=== PATIENT | female | born 1985 | race African-American/Black ===

== ENCOUNTER 2016-09-23 20:34 | Inpatient (IN) | payer MEDICAID ==
[~2016-09-23] VITALS: Ht 185.4 cm; Wt 62.6 kg
[2016-09-23 21:29] VITALS: BP 115/68
[2016-09-23] MEDS ORDERED: ZOLPIDEM TARTRATE 10 MG TABLET PO PRN (21:45)
[2016-09-23 22:15] VITALS: BP 104/69
[2016-09-23] MEDS ORDERED: MELA1TAB8 PO (23:56)
[2016-09-24 07:29] LABS: BASOPHILS % (AUTO) 0.4 % (0.0-2.0); EOSINOPHILS % (AUTO) 1.3 % (1.0-6.0); HEMATOCRIT 36.1 % (36-46); HEMOGLOBIN 11.4 g/dL (12.0-16.0); LYMPHOCYTES # (AUTO) 2.1 K/uL (1.0-4.8); LYMPHOCYTES % (AUTO) 24.1 % (22.0-44.0); MEAN CORPUSCULAR HEMOGLOBIN 30.5 pg (26.0-34.0); MEAN CORPUSCULAR HGB CONC 31.6 G/dL (31.0-37.0); MEAN CORPUSCULAR VOLUME 97 fL (80-100); MONOCYTES # (AUTO) 0.9 K/uL (0.1-1.0); MONOCYTES % (AUTO) 9.9 % (2.0-9.0); NEUTROPHILS # (AUTO) 5.6 K/uL (1.8-7.7); NEUTROPHILS % (AUTO) 64.3 % (40.0-70.0); PLATELET COUNT (AUTO) 187 K/uL (150-450); RED BLOOD CELL COUNT(AUTO) 3.74 MIL/uL (4.00-5.20); RED CELL DISTRIBUTION WIDTH 14.6 % (11.5-14.5); WHITE BLOOD COUNT (AUTO) 8.7 K/uL (4.5-11.0)
[2016-09-24 07:51] LABS: ALANINE AMINOTRANSFERASE 18 U/L (12-78); ALBUMIN 3.3 g/dL (3.4-5.0); ANION GAP 8 mmol/L (8-16); ASPARTATE AMINOTRANSFERASE 12 U/L (15-37); BILIRUBIN,TOTAL 0.4 mg/dL (0.1-1.0); CALCIUM, TOTAL 8.6 mg/dL (8.8-10.5); CARBON DIOXIDE 26 mmol/L (22-29); CHLORIDE 104 mmol/L (98-107); CHOL/HDL RATIO 1.7 (3.9-5.7); CREATININE 0.88 mg/dL (0.60-1.30); GLOMERULAR FILTR. RATE CALC > 60 mL/min (>60); POTASSIUM 4.3 mmol/L (3.5-5.1); SODIUM SERUM 138 mmol/L (136-145); THYROID STIMULATING HORMONE 1.48 uIU/mL (0.36-3.74); TOTAL PROTEIN, SERUM 7.1 g/dL (6.4-8.2); UREA NITROGEN, BLOOD 11 mg/dL (7-18)
[2016-09-24 09:21] VITALS: BP 106/60
[2016-09-24] MEDS ORDERED: SERTRALINE HCL 100 MG TABLET PO SCH (11:00)
[2016-09-24] MEDS ORDERED: SERTRALINE HCL 50 MG TABLET PO SCH (11:00)
[2016-09-24 16:00] VITALS: BP 120/82
[2016-09-24] MEDS: LORazepam 2 MG TABLET PO PRN (18:04)
[2016-09-24] MEDS: HALOPERIDOL 5 MG TABLET PO PRN (21:27)
[2016-09-25 03:25] VITALS: BP 110/78
[2016-09-25 08:01] VITALS: BP 127/81
[2016-09-25] MEDS: LORazepam 2 MG TABLET PO PRN ×2 (09:47→13:59)
[2016-09-25 16:00] VITALS: BP 129/67
[2016-09-25] MEDS: QUEtiapine FUMARATE 25 MG TABLET PO SCH (20:43)
[2016-09-26 01:21] VITALS: BP 105/60
[2016-09-26 05:44] VITALS: BP 113/77
[2016-09-26] MEDS: LORazepam 2 MG TABLET PO PRN (05:46)
[2016-09-26 08:07] VITALS: BP 126/67
[2016-09-26] MEDS: SERTRALINE HCL 100 MG TABLET PO SCH (08:25)
[2016-09-26] MEDS: HALOPERIDOL 5 MG TABLET PO PRN (12:10)
[2016-09-26 16:00] VITALS: BP 119/75
[2016-09-26] MEDS: QUEtiapine FUMARATE 25 MG TABLET PO SCH (20:03)
[2016-09-27 00:16] VITALS: BP 100/67
[2016-09-27 02:26] VITALS: BP 120/73
[2016-09-27] MEDS: LORazepam 2 MG TABLET PO PRN ×3 (02:28→17:29)
[2016-09-27 08:09] VITALS: BP 107/73
[2016-09-27] MEDS: SERTRALINE HCL 100 MG TABLET PO SCH (08:21)
[2016-09-27 16:00] VITALS: BP 112/77
[2016-09-27] MEDS ORDERED: QUET25TA PO (16:59)
[2016-09-27] MEDS ORDERED: SERT100T12 PO (17:00)
== END 2016-09-27 18:25 | disposition home or self-care (01) | DRG 751 ==
LOC: EDSTATUS 20:35 → B2S 21:41 → EDSTATUS 22:33
PROVIDERS: ADMIT Psychiatry & Neurology Psychiatry
DX: F33.3 Major depressive disorder, recurrent, severe with psychotic symptoms (principal); R45.851 Suicidal ideations; F12.90 Cannabis use, unspecified, uncomplicated; F60.3 Borderline personality disorder
CPT/HCPCS: 84439; 84443; G0480

== ENCOUNTER 2016-12-12 22:44 | Inpatient (IN) | payer MEDICAID, OTHER ==
[~2016-12-12] VITALS: Ht 182.9 cm; Wt 64.7 kg
[~2016-12-12 22:44] MED LIST: QUET100T PO; SERT100T12 PO
[2016-12-13] MEDS ORDERED: HALOPERIDOL 5 MG TABLET PO PRN (01:30)
[2016-12-13] MEDS ORDERED: HALOPERIDOL 5 MG TABLET PO ONE (01:30)
[2016-12-13] MEDS ORDERED: LORazepam 2 MG TABLET PO ONE (01:30)
[2016-12-13 02:36] LABS: BASOPHILS % (AUTO) 0.1 % (0.0-2.0); HEMOGLOBIN 11.1 g/dL (12.0-16.0); LYMPHOCYTES # (AUTO) 1.8 K/uL (1.0-4.8); MEAN CORPUSCULAR HEMOGLOBIN 31.4 pg (26.0-34.0); MEAN CORPUSCULAR HGB CONC 33.5 G/dL (31.0-37.0); MEAN CORPUSCULAR VOLUME 94 fL (80-100); MONOCYTES # (AUTO) 0.6 K/uL (0.1-1.0); MONOCYTES % (AUTO) 6.1 % (2.0-9.0); NEUTROPHILS # (AUTO) 7.3 K/uL (1.8-7.7); NEUTROPHILS % (AUTO) 73.8 % (40.0-70.0); PLATELET COUNT (AUTO) 197 K/uL (150-450); RED BLOOD CELL COUNT(AUTO) 3.53 MIL/uL (4.00-5.20); RED CELL DISTRIBUTION WIDTH 14.8 % (11.5-14.5); WHITE BLOOD COUNT (AUTO) 9.9 K/uL (4.5-11.0)
[2016-12-13 02:45] LABS: ANION GAP 13 mmol/L (8-16); CALCIUM, TOTAL 8.6 mg/dL (8.8-10.5); CARBON DIOXIDE 25 mmol/L (22-29); CHLORIDE 107 mmol/L (98-107); CREATININE 0.92 mg/dL (0.60-1.30); GLOMERULAR FILTR. RATE CALC > 60 mL/min (>60); POTASSIUM 3.6 mmol/L (3.5-5.1); SODIUM SERUM 145 mmol/L (136-145); UREA NITROGEN, BLOOD 13 mg/dL (7-18)
[2016-12-13 02:51] LABS: ALANINE AMINOTRANSFERASE 85 U/L (12-78); ALBUMIN 3.3 g/dL (3.4-5.0); ASPARTATE AMINOTRANSFERASE 68 U/L (15-37); BILIRUBIN,TOTAL 0.3 mg/dL (0.1-1.0); TOTAL PROTEIN, SERUM 6.9 g/dL (6.4-8.2)
[2016-12-13 06:33] VITALS: BP 103/63
[2016-12-13 08:00] VITALS: BP 100/66
[2016-12-13] MEDS: LORazepam 2 MG TABLET PO PRN (08:46)
[2016-12-13 16:00] VITALS: BP 108/68
[2016-12-13] MEDS: QUEtiapine FUMARATE 200 MG TABLET PO SCH (20:17)
[2016-12-13] MEDS: ZOLPIDEM TARTRATE 10 MG TABLET PO PRN (23:53)
[2016-12-14] MEDS: LORazepam 2 MG TABLET PO PRN ×3 (04:49→17:42)
[2016-12-14 07:07] VITALS: BP 100/72
[2016-12-14] MEDS: SERTRALINE HCL 50 MG TABLET PO SCH (08:19)
[2016-12-14 08:23] VITALS: BP 106/61
[2016-12-14 08:48] LABS: BASOPHILS % (AUTO) 0.7 % (0.0-2.0); EOSINOPHILS % (AUTO) 5.5 % (1.0-6.0); HEMATOCRIT 34.4 % (36-46); HEMOGLOBIN 11.7 g/dL (12.0-16.0); LYMPHOCYTES # (AUTO) 2.2 K/uL (1.0-4.8); LYMPHOCYTES % (AUTO) 34.8 % (22.0-44.0); MEAN CORPUSCULAR HEMOGLOBIN 31.8 pg (26.0-34.0); MEAN CORPUSCULAR HGB CONC 34.1 G/dL (31.0-37.0); MEAN CORPUSCULAR VOLUME 93 fL (80-100); MONOCYTES # (AUTO) 0.5 K/uL (0.1-1.0); MONOCYTES % (AUTO) 7.5 % (2.0-9.0); NEUTROPHILS # (AUTO) 3.2 K/uL (1.8-7.7); NEUTROPHILS % (AUTO) 51.5 % (40.0-70.0); PLATELET COUNT (AUTO) 208 K/uL (150-450); RED BLOOD CELL COUNT(AUTO) 3.69 MIL/uL (4.00-5.20); RED CELL DISTRIBUTION WIDTH 14.8 % (11.5-14.5); WHITE BLOOD COUNT (AUTO) 6.3 K/uL (4.5-11.0)
[2016-12-14 09:35] LABS: HEMOGLOBIN A1C 5.4 % (4.5-6.2)
[2016-12-14 09:42] LABS: APPEARANCE,URINE CLOUDY (CLEAR); GLUCOSE, URINE (UA) NEGATIVE (NEGATIVE); KETONES,URINE NEGATIVE (NEGATIVE); LEUKOCYTE ESTERASE ,URINE MODERATE (NEGATIVE); OCCULT BLOOD,URINE NEGATIVE (NEGATIVE); PH,URINE 7.5 (5.0-8.0); PROTEIN,URINE NEGATIVE (NEGATIVE)
[2016-12-14 09:53] LABS: ADD UA MICROSCOPIC YES
[2016-12-14 09:54] LABS: RBC,URINE None Seen /HPF (0-2); SQUAMOUS EPITHELIAL CELL,UR Many /LPF (None Seen)
[2016-12-14 10:00] LABS: ALANINE AMINOTRANSFERASE 68 U/L (12-78); ALBUMIN 3.4 g/dL (3.4-5.0); ANION GAP 12 mmol/L (8-16); ASPARTATE AMINOTRANSFERASE 30 U/L (15-37); BILIRUBIN,TOTAL 0.4 mg/dL (0.1-1.0); CALCIUM, TOTAL 8.9 mg/dL (8.8-10.5); CARBON DIOXIDE 23 mmol/L (22-29); CHLORIDE 106 mmol/L (98-107); CREATININE 0.81 mg/dL (0.60-1.30); GLOMERULAR FILTR. RATE CALC > 60 mL/min (>60); POTASSIUM 4.2 mmol/L (3.5-5.1); SODIUM SERUM 141 mmol/L (136-145); TOTAL PROTEIN, SERUM 7.1 g/dL (6.4-8.2); UREA NITROGEN, BLOOD 14 mg/dL (7-18)
[2016-12-14 16:11] VITALS: BP 104/60
[2016-12-14] MEDS: QUEtiapine FUMARATE 200 MG TABLET PO SCH (20:34)
[2016-12-14] MEDS: ZOLPIDEM TARTRATE 10 MG TABLET PO PRN (21:02)
[2016-12-15 02:10] VITALS: BP 117/63
[2016-12-15] MEDS: LORazepam 2 MG TABLET PO PRN ×2 (02:27→08:58)
[2016-12-15] MEDS: SERTRALINE HCL 50 MG TABLET PO SCH (08:17)
[2016-12-15 08:29] LABS: HEPATITIS Bs ANTIGEN SCREEN P Negative (Negative); HEPATITIS C AB SCREEN <0.1 s/co ratio (0.0-0.9)
[2016-12-15 08:33] VITALS: BP 100/54
[2016-12-15] MEDS ORDERED: QUET200T PO (14:26)
[2016-12-15 16:03] VITALS: BP 110/75
== END 2016-12-15 18:40 | disposition home or self-care (01) | DRG 750 ==
LOC: EMS 22:47 → B3A 12-13 04:16
DX: F25.1 Schizoaffective disorder, depressive type (principal); D64.9 Anemia, unspecified; F12.90 Cannabis use, unspecified, uncomplicated; F17.200 Nicotine dependence, unspecified, uncomplicated; M19.90 Unspecified osteoarthritis, unspecified site; Z79.899 Other long term (current) drug therapy; Z82.5 Family history of asthma and other chronic lower respiratory diseases; F14.90 Cocaine use, unspecified, uncomplicated; R79.89 Other specified abnormal findings of blood chemistry; Z71.51 Drug abuse counseling and surveillance of drug abuser; N83.202 Unspecified ovarian cyst, left side
CPT/HCPCS: 80074; 80307; 83036; 83735; 84439; 87081; 99285; G0480

== ENCOUNTER 2017-02-01 13:33 | Inpatient (IN) | payer MEDICAID, OTHER ==
[~2017-02-01] VITALS: Ht 182.9 cm; Wt 66.7 kg
[~2017-02-01 13:33] MED LIST changes: -QUET100T PO; +QUET200T PO; -SERT100T12 PO; +SERT50TA12 PO
[2017-02-01] MEDS ORDERED: QUEtiapine FUMARATE 100 MG TABLET PO ONE (15:00)
[2017-02-01 15:17] LABS: BASOPHILS % (AUTO) 0.5 % (0.0-2.0); HEMATOCRIT 36.5 % (36-46); HEMOGLOBIN 12.2 g/dL (12.0-16.0); LYMPHOCYTES # (AUTO) 1.8 K/uL (1.0-4.8); LYMPHOCYTES % (AUTO) 21.9 % (22.0-44.0); MEAN CORPUSCULAR HEMOGLOBIN 31.9 pg (26.0-34.0); MEAN CORPUSCULAR HGB CONC 33.5 G/dL (31.0-37.0); MEAN CORPUSCULAR VOLUME 95 fL (80-100); MONOCYTES # (AUTO) 0.7 K/uL (0.1-1.0); MONOCYTES % (AUTO) 8.4 % (2.0-9.0); NEUTROPHILS # (AUTO) 5.5 K/uL (1.8-7.7); NEUTROPHILS % (AUTO) 68.2 % (40.0-70.0); PLATELET COUNT (AUTO) 192 K/uL (150-450); RED BLOOD CELL COUNT(AUTO) 3.83 MIL/uL (4.00-5.20); RED CELL DISTRIBUTION WIDTH 14.8 % (11.5-14.5)
[2017-02-01 15:28] LABS: ANION GAP 7 mmol/L (8-16); CALCIUM, TOTAL 8.9 mg/dL (8.8-10.5); CARBON DIOXIDE 28 mmol/L (22-29); CHLORIDE 108 mmol/L (98-107); CREATININE 0.78 mg/dL (0.60-1.30); GLOMERULAR FILTR. RATE CALC > 60 mL/min (>60); POTASSIUM 3.7 mmol/L (3.5-5.1); SODIUM SERUM 143 mmol/L (136-145); UREA NITROGEN, BLOOD 11 mg/dL (7-18)
[2017-02-01] MEDS ORDERED: LORazepam 2 MG/ML VIAL IM ONE (15:30)
[2017-02-01] MEDS ORDERED: DiphenhydrAMINE HCL 50 MG/ML VIAL IM ONE (15:30)
[2017-02-01] MEDS ORDERED: HALOPERIDOL LACTATE 5 MG/ML VIAL IM ONE (15:30)
[2017-02-01 15:34] LABS: ALANINE AMINOTRANSFERASE 132 U/L (12-78); ALBUMIN 3.5 g/dL (3.4-5.0); ASPARTATE AMINOTRANSFERASE 89 U/L (15-37); BILIRUBIN,TOTAL 0.4 mg/dL (0.1-1.0); TOTAL PROTEIN, SERUM 7.2 g/dL (6.4-8.2)
[2017-02-01 17:02] LABS: RBC MORPHOLOGY COMMENT NORMAL RBC MORPH
[2017-02-01 17:10] VITALS: BP 121/71
[2017-02-02 03:41] VITALS: BP 118/69
[2017-02-02] MEDS: LORazepam 2 MG TABLET PO PRN ×3 (07:09→17:13)
[2017-02-02] MEDS: BACITRACIN 28.4 GM OINTMENT TP SCH ×2 (08:18→17:13)
[2017-02-02 08:26] VITALS: BP 120/72
[2017-02-02 09:42] LABS: CHOL/HDL RATIO 1.9 (3.9-5.7)
[2017-02-02] MEDS: SERTRALINE HCL 50 MG TABLET PO SCH (10:20)
[2017-02-02 16:16] VITALS: BP 121/62
[2017-02-02] MEDS: QUEtiapine FUMARATE 200 MG TABLET PO SCH (20:26)
[2017-02-03 01:05] VITALS: BP 117/68
[2017-02-03] MEDS: LORazepam 2 MG TABLET PO PRN ×3 (03:59→17:55)
[2017-02-03] MEDS: HALOPERIDOL 5 MG TABLET PO PRN ×2 (06:27→17:55)
[2017-02-03 08:09] VITALS: BP 110/63
[2017-02-03] MEDS: BACITRACIN 28.4 GM OINTMENT TP SCH ×2 (08:32→16:47)
[2017-02-03] MEDS: SERTRALINE HCL 50 MG TABLET PO SCH (08:32)
[2017-02-03 10:46] VITALS: BP 112/72
[2017-02-03] MEDS: IBUPROFEN 400 MG TABLET PO PRN (10:46)
[2017-02-03 16:14] VITALS: BP 137/68
[2017-02-03] MEDS: QUEtiapine FUMARATE 200 MG TABLET PO SCH (20:40)
[2017-02-03] MEDS: ZOLPIDEM TARTRATE 10 MG TABLET PO PRN (20:40)
[2017-02-04 04:09] VITALS: BP 133/67
[2017-02-04] MEDS: SERTRALINE HCL 50 MG TABLET PO SCH (08:11)
[2017-02-04] MEDS: BACITRACIN 28.4 GM OINTMENT TP SCH ×2 (08:12→16:46)
[2017-02-04] MEDS: LORazepam 2 MG TABLET PO PRN ×3 (08:15→18:59)
[2017-02-04 08:23] VITALS: BP 107/70
[2017-02-04] MEDS: IBUPROFEN 400 MG TABLET PO PRN (08:49)
[2017-02-04 09:14] LABS: HEPATITIS Bs ANTIGEN SCREEN P Negative (Negative); HEPATITIS C AB SCREEN 0.1 s/co ratio (0.0-0.9)
[2017-02-04] MEDS: HALOPERIDOL 5 MG TABLET PO PRN ×2 (14:45→18:59)
[2017-02-04 16:18] VITALS: BP 115/73
[2017-02-04] MEDS: QUEtiapine FUMARATE 200 MG TABLET PO SCH (20:44)
[2017-02-05 02:07] VITALS: BP 109/68
[2017-02-05] MEDS: IBUPROFEN 400 MG TABLET PO PRN (02:10)
[2017-02-05 08:14] VITALS: BP 109/69
[2017-02-05] MEDS: SERTRALINE HCL 50 MG TABLET PO SCH (08:29)
[2017-02-05] MEDS: HALOPERIDOL 5 MG TABLET PO PRN ×2 (08:29→13:09)
[2017-02-05] MEDS: LORazepam 2 MG TABLET PO PRN ×2 (08:29→13:09)
[2017-02-05] MEDS: BACITRACIN 28.4 GM OINTMENT TP SCH ×2 (08:31→16:15)
[2017-02-05 16:12] VITALS: BP 105/65
[2017-02-05] MEDS: QUEtiapine FUMARATE 200 MG TABLET PO SCH (20:11)
[2017-02-05] MEDS: ZOLPIDEM TARTRATE 10 MG TABLET PO PRN (22:50)
[2017-02-06 04:28] VITALS: BP 109/68
[2017-02-06] MEDS: LORazepam 2 MG TABLET PO PRN (04:29)
[2017-02-06] MEDS: SERTRALINE HCL 50 MG TABLET PO SCH (07:54)
[2017-02-06] MEDS: BACITRACIN 28.4 GM OINTMENT TP SCH ×2 (07:55→16:49)
[2017-02-06 08:11] VITALS: BP 106/69
[2017-02-06] MEDS ORDERED: HALOPERIDOL LACTATE 5 MG/ML VIAL IM ONE (11:30)
[2017-02-06] MEDS ORDERED: DiphenhydrAMINE HCL 50 MG/ML VIAL IM ONE (11:30)
[2017-02-06] MEDS ORDERED: LORazepam 2 MG/ML VIAL IM ONE (11:30)
[2017-02-06 12:15] VITALS: BP 114/76
[2017-02-06] MEDS: IBUPROFEN 400 MG TABLET PO PRN (12:15)
[2017-02-06 16:11] VITALS: BP 132/66
[2017-02-06] MEDS: ZOLPIDEM TARTRATE 10 MG TABLET PO PRN (20:22)
[2017-02-06] MEDS: QUEtiapine FUMARATE 200 MG TABLET PO SCH (20:22)
[2017-02-07 02:20] VITALS: BP 117/63
[2017-02-07] MEDS: LORazepam 2 MG TABLET PO PRN ×2 (05:50→09:52)
[2017-02-07] MEDS: SERTRALINE HCL 50 MG TABLET PO SCH (08:00)
[2017-02-07] MEDS: IBUPROFEN 400 MG TABLET PO PRN ×2 (08:01→20:43)
[2017-02-07] MEDS: BACITRACIN 28.4 GM OINTMENT TP SCH ×2 (08:03→16:12)
[2017-02-07 08:15] VITALS: BP 107/59
[2017-02-07] MEDS: HALOPERIDOL 5 MG TABLET PO PRN ×2 (10:42→16:12)
[2017-02-07] MEDS: NICOTINE 7 MG/24 HOUR PATCH TD SCH (11:01)
[2017-02-07 16:18] VITALS: BP 110/67
[2017-02-07] MEDS: QUEtiapine FUMARATE 200 MG TABLET PO SCH (20:18)
[2017-02-07] MEDS: ZOLPIDEM TARTRATE 10 MG TABLET PO PRN (20:26)
[2017-02-08 05:47] VITALS: BP 106/74
[2017-02-08] MEDS: LORazepam 2 MG TABLET PO PRN ×2 (06:59→17:50)
[2017-02-08] MEDS: SERTRALINE HCL 50 MG TABLET PO SCH (08:58)
[2017-02-08] MEDS: NICOTINE 7 MG/24 HOUR PATCH TD SCH (08:58)
[2017-02-08] MEDS: BACITRACIN 28.4 GM OINTMENT TP SCH ×2 (08:59→16:15)
[2017-02-08 09:01] VITALS: BP 101/63
[2017-02-08 16:10] VITALS: BP 113/69
[2017-02-08] MEDS: ZOLPIDEM TARTRATE 10 MG TABLET PO PRN (20:30)
[2017-02-08] MEDS: QUEtiapine FUMARATE 200 MG TABLET PO SCH (20:30)
[2017-02-09 06:28] VITALS: BP 110/66
[2017-02-09] MEDS: SERTRALINE HCL 50 MG TABLET PO SCH (08:20)
[2017-02-09] MEDS: NICOTINE 7 MG/24 HOUR PATCH TD SCH (08:21)
[2017-02-09] MEDS: BACITRACIN 28.4 GM OINTMENT TP SCH (08:23)
[2017-02-09 08:29] VITALS: BP 117/67
[2017-02-09] MEDS: LORazepam 2 MG TABLET PO PRN (10:43)
== END 2017-02-09 13:45 | disposition home or self-care (01) | DRG 750 ==
LOC: EMS 13:34 → B3A 15:18
PROVIDERS: ADMIT Psychiatry & Neurology Child & Adolescent Psychiatry; ATTEND Psychiatry & Neurology Child & Adolescent Psychiatry
DX: F20.0 Paranoid schizophrenia (principal); R74.0 Nonspecific elevation of levels of transaminase and lactic acid dehydrogenase [LDH]; F31.9 Bipolar disorder, unspecified; F14.90 Cocaine use, unspecified, uncomplicated; F12.10 Cannabis abuse, uncomplicated; Z79.899 Other long term (current) drug therapy
CPT/HCPCS: 80074; 87081; 96372; 99285; G0480; J1200; J1630; J2060

== ENCOUNTER 2017-02-13 16:16 | Inpatient (IN) | payer MEDICAID ==
[~2017-02-13] VITALS: Ht 182.9 cm; Wt 68.6 kg
[2017-02-13 18:07] VITALS: BP 103/57
[2017-02-13 18:30] VITALS: BP 100/63
[2017-02-13] MEDS ORDERED: INFLUENZA VIRUS VACCINE QVS 2017-18 (3YR+)/PF 60 MCG/0.5 ML SYRINGE IM ONE (18:30)
[2017-02-13] MEDS ORDERED: PNEUMOCOCCAL VACCINE POLYVALENT 0.5 ML VIAL [PPSV23] IM ONE (18:30)
[2017-02-13] MEDS: ZOLPIDEM TARTRATE 10 MG TABLET PO PRN (21:25)
[2017-02-14] MEDS: LORazepam 2 MG TABLET PO PRN ×3 (05:06→16:10)
[2017-02-14 06:05] VITALS: BP 110/72
[2017-02-14 08:21] VITALS: BP 108/62
[2017-02-14] MEDS: NICOTINE 14 MG/24 HOUR PATCH TD SCH (08:35)
[2017-02-14] MEDS: HALOPERIDOL 5 MG TABLET PO PRN ×2 (08:58→16:48)
[2017-02-14 09:13] LABS: HEMOGLOBIN A1C 5.8 % (4.5-6.2)
[2017-02-14 09:31] LABS: BASOPHILS % (AUTO) 0.5 % (0.0-2.0); EOSINOPHILS % (AUTO) 1.5 % (1.0-6.0); HEMOGLOBIN 10.6 g/dL (12.0-16.0); LYMPHOCYTES # (AUTO) 2.1 K/uL (1.0-4.8); LYMPHOCYTES % (AUTO) 30.4 % (22.0-44.0); MEAN CORPUSCULAR HEMOGLOBIN 31.6 pg (26.0-34.0); MEAN CORPUSCULAR HGB CONC 33.2 G/dL (31.0-37.0); MEAN CORPUSCULAR VOLUME 95 fL (80-100); MONOCYTES # (AUTO) 0.5 K/uL (0.1-1.0); MONOCYTES % (AUTO) 6.9 % (2.0-9.0); NEUTROPHILS # (AUTO) 4.2 K/uL (1.8-7.7); NEUTROPHILS % (AUTO) 60.7 % (40.0-70.0); PLATELET COUNT (AUTO) 223 K/uL (150-450); RED BLOOD CELL COUNT(AUTO) 3.36 MIL/uL (4.00-5.20); RED CELL DISTRIBUTION WIDTH 14.7 % (11.5-14.5); WHITE BLOOD COUNT (AUTO) 6.9 K/uL (4.5-11.0)
[2017-02-14 09:34] LABS: ALANINE AMINOTRANSFERASE 110 U/L (12-78); ANION GAP 8 mmol/L (8-16); ASPARTATE AMINOTRANSFERASE 61 U/L (15-37); BILIRUBIN,TOTAL 0.4 mg/dL (0.1-1.0); CALCIUM, TOTAL 8.1 mg/dL (8.8-10.5); CARBON DIOXIDE 26 mmol/L (22-29); CHLORIDE 107 mmol/L (98-107); CHOL/HDL RATIO 1.7 (3.9-5.7); CREATININE 0.85 mg/dL (0.60-1.30); GLOMERULAR FILTR. RATE CALC > 60 mL/min (>60); POTASSIUM 4.4 mmol/L (3.5-5.1); SODIUM SERUM 141 mmol/L (136-145); THYROID STIMULATING HORMONE 1.25 uIU/mL (0.36-3.74); TOTAL PROTEIN, SERUM 5.6 g/dL (6.4-8.2); UREA NITROGEN, BLOOD 16 mg/dL (7-18)
[2017-02-14 10:14] LABS: GLUCOSE, URINE (UA) NEGATIVE (NEGATIVE); KETONES,URINE NEGATIVE (NEGATIVE); LEUKOCYTE ESTERASE ,URINE NEGATIVE (NEGATIVE); OCCULT BLOOD,URINE NEGATIVE (NEGATIVE); PROTEIN,URINE NEGATIVE (NEGATIVE)
[2017-02-14 10:27] LABS: ADD UA MICROSCOPIC YES
[2017-02-14 10:28] LABS: APPEARANCE,URINE CLOUDY (CLEAR)
[2017-02-14 10:29] LABS: CALCIUM OXALATE CRYSTALS,UR Many /LPF (None Seen); RBC,URINE None Seen /HPF (0-2); SQUAMOUS EPITHELIAL CELL,UR Few /LPF (None Seen); WBC,URINE 0-2 /HPF (0-5)
[2017-02-14] MEDS: ALBUTEROL SULFATE HFA 90 MCG/PUFF 8 GM INHALER IH PRN (12:41)
[2017-02-14] MEDS: SERTRALINE HCL 50 MG TABLET PO SCH (15:25)
[2017-02-14] MEDS: ARIPiprazole 10 MG TABLET PO SCH (15:25)
[2017-02-14 16:34] VITALS: BP 124/64
[2017-02-14] MEDS: FERROUS SULFATE 325 MG EC TABLET PO SCH (16:48)
[2017-02-15 05:48] VITALS: BP 114/81
[2017-02-15] MEDS: FERROUS SULFATE 325 MG EC TABLET PO SCH ×3 (06:50→16:23)
[2017-02-15 08:00] VITALS: BP 130/67
[2017-02-15] MEDS: SERTRALINE HCL 50 MG TABLET PO SCH (08:11)
[2017-02-15] MEDS: ARIPiprazole 10 MG TABLET PO SCH (08:11)
[2017-02-15] MEDS: LORazepam 2 MG TABLET PO PRN (08:11)
[2017-02-15] MEDS: NICOTINE 14 MG/24 HOUR PATCH TD SCH (08:11)
[2017-02-15] MEDS: ALBUTEROL SULFATE HFA 90 MCG/PUFF 8 GM INHALER IH PRN ×2 (08:14→16:51)
[2017-02-15 16:25] VITALS: BP 100/72
[2017-02-15] MEDS: ZOLPIDEM TARTRATE 10 MG TABLET PO PRN (20:31)
[2017-02-16] MEDS: ALBUTEROL SULFATE HFA 90 MCG/PUFF 8 GM INHALER IH PRN ×2 (02:14→09:06)
[2017-02-16] MEDS: ZOLPIDEM TARTRATE 10 MG TABLET PO PRN (02:43)
[2017-02-16 02:52] VITALS: BP 108/55
[2017-02-16] MEDS: FERROUS SULFATE 325 MG EC TABLET PO SCH ×3 (06:02→16:08)
[2017-02-16] MEDS: SERTRALINE HCL 50 MG TABLET PO SCH (08:13)
[2017-02-16] MEDS: NICOTINE 14 MG/24 HOUR PATCH TD SCH (08:13)
[2017-02-16] MEDS: ARIPiprazole 10 MG TABLET PO SCH (08:13)
[2017-02-16 08:39] VITALS: BP 112/70
[2017-02-16 09:13] LABS: HEPATITIS Bs ANTIGEN SCREEN P Negative (Negative); HEPATITIS C AB SCREEN <0.1 s/co ratio (0.0-0.9)
[2017-02-16] MEDS: LORazepam 2 MG TABLET PO PRN ×2 (10:57→15:34)
[2017-02-16] MEDS: HALOPERIDOL 5 MG TABLET PO PRN (15:34)
[2017-02-16 16:19] VITALS: BP 126/71
[2017-02-17] MEDS: ZOLPIDEM TARTRATE 10 MG TABLET PO PRN ×2 (00:25→20:50)
[2017-02-17] MEDS: LORazepam 2 MG TABLET PO PRN ×2 (03:55→16:39)
[2017-02-17 05:57] VITALS: BP 119/72
[2017-02-17] MEDS: FERROUS SULFATE 325 MG EC TABLET PO SCH ×3 (06:55→16:39)
[2017-02-17] MEDS: SERTRALINE HCL 50 MG TABLET PO SCH (08:16)
[2017-02-17] MEDS: ARIPiprazole 10 MG TABLET PO SCH (08:16)
[2017-02-17] MEDS: NICOTINE 14 MG/24 HOUR PATCH TD SCH (08:17)
[2017-02-17 08:23] VITALS: BP 97/53
[2017-02-17 16:17] VITALS: BP 109/68
[2017-02-17] MEDS: HALOPERIDOL 5 MG TABLET PO PRN (16:39)
[2017-02-18 05:10] VITALS: BP 103/65
[2017-02-18] MEDS: LORazepam 2 MG TABLET PO PRN (06:11)
[2017-02-18] MEDS: FERROUS SULFATE 325 MG EC TABLET PO SCH ×3 (06:43→16:24)
[2017-02-18 08:25] VITALS: BP 98/61
[2017-02-18] MEDS: NICOTINE 14 MG/24 HOUR PATCH TD SCH (08:34)
[2017-02-18] MEDS: SERTRALINE HCL 50 MG TABLET PO SCH (08:35)
[2017-02-18] MEDS: ARIPiprazole 10 MG TABLET PO SCH (08:35)
[2017-02-18 16:07] VITALS: BP 107/64
[2017-02-18] MEDS: ALBUTEROL SULFATE HFA 90 MCG/PUFF 8 GM INHALER IH PRN (19:05)
[2017-02-18] MEDS: ZOLPIDEM TARTRATE 10 MG TABLET PO PRN (20:46)
[2017-02-19 00:08] VITALS: BP 109/72
[2017-02-19] MEDS: LORazepam 2 MG TABLET PO PRN ×3 (00:26→13:48)
[2017-02-19] MEDS: FERROUS SULFATE 325 MG EC TABLET PO SCH ×3 (06:43→16:21)
[2017-02-19 08:23] VITALS: BP 108/70
[2017-02-19] MEDS: ARIPiprazole 10 MG TABLET PO SCH (08:37)
[2017-02-19] MEDS: SERTRALINE HCL 50 MG TABLET PO SCH (08:37)
[2017-02-19] MEDS: NICOTINE 14 MG/24 HOUR PATCH TD SCH (08:37)
[2017-02-19] MEDS ORDERED: ARIPiprazole LAUROXIL ER SUSPENSION 882 MG/3.2 ML SYRINGE IM SCH (10:00)
[2017-02-19 16:27] VITALS: BP 101/62
[2017-02-19] MEDS: ZOLPIDEM TARTRATE 10 MG TABLET PO PRN (20:18)
[2017-02-20 03:59] VITALS: BP 132/76
[2017-02-20] MEDS: FERROUS SULFATE 325 MG EC TABLET PO SCH ×2 (06:39→12:17)
[2017-02-20 08:00] VITALS: BP 107/59
[2017-02-20] MEDS: ARIPiprazole 10 MG TABLET PO SCH (08:36)
[2017-02-20] MEDS: NICOTINE 14 MG/24 HOUR PATCH TD SCH (08:36)
[2017-02-20] MEDS: SERTRALINE HCL 50 MG TABLET PO SCH (08:37)
== END 2017-02-20 15:00 | disposition home or self-care (01) | DRG 750 ==
LOC: B3A 17:45
PROVIDERS: ADMIT Psychiatry & Neurology Child & Adolescent Psychiatry; ATTEND Psychiatry & Neurology Child & Adolescent Psychiatry
DX: F20.0 Paranoid schizophrenia (principal); Z91.19 Patient's noncompliance with other medical treatment and regimen; D64.9 Anemia, unspecified; F12.90 Cannabis use, unspecified, uncomplicated; J45.909 Unspecified asthma, uncomplicated; Z28.21 Immunization not carried out because of patient refusal
CPT/HCPCS: 80074; 80307; 83036; 84439; 84443; 87081; J3535

== ENCOUNTER 2019-10-31 17:16 | Emergency (ER) | payer MEDICAID, OTHER ==
[~2019-10-31] VITALS: Ht 183.5 cm; Wt 68.2 kg
[~2019-10-31 17:16] MED LIST changes: -QUET200T PO
[2019-10-31 18:29] VITALS: BP 132/66
[2019-10-31 18:55] LABS: ALANINE AMINOTRANSFERASE 47 U/L (12-78); ALBUMIN 4.7 g/dL (3.4-5.0); ALKALINE PHOSPHATASE 86 U/L (46-116); ANION GAP 15 mmol/L (8-16); ASPARTATE AMINOTRANSFERASE 58 U/L (15-37); BILIRUBIN,TOTAL 0.7 mg/dL (0.1-1.0); CALCIUM, TOTAL 9.5 mg/dL (8.8-10.5); CARBON DIOXIDE 24 mmol/L (22-29); CHLORIDE 103 mmol/L (98-107); CREATININE 0.92 mg/dL (0.60-1.30); GLOMERULAR FILTR. RATE CALC > 60 mL/min (>60); GLUCOSE,RANDOM 97 mg/dL (70-110); SODIUM SERUM 142 mmol/L (136-145); TOTAL PROTEIN, SERUM 9.4 g/dL (6.4-8.2); UREA NITROGEN, BLOOD 12 mg/dL (7-18)
[2019-10-31 18:58] LABS: BASOPHILS % (AUTO) 1.1 % (0.0-2.0); EOSINOPHILS % (AUTO) 0.5 % (1.0-6.0); HEMATOCRIT 42.1 % (36-46); HEMOGLOBIN 14.2 g/dL (12.0-16.0); LYMPHOCYTES # (AUTO) 3.2 K/uL (1.0-4.8); MEAN CORPUSCULAR HEMOGLOBIN 31.5 pg (26.0-34.0); MEAN CORPUSCULAR HGB CONC 33.7 G/dL (31.0-37.0); MEAN CORPUSCULAR VOLUME 93 fL (80-100); MONOCYTES # (AUTO) 0.7 K/uL (0.1-1.0); MONOCYTES % (AUTO) 8.3 % (2.0-9.0); NEUTROPHILS # (AUTO) 4.5 K/uL (1.8-7.7); NEUTROPHILS % (AUTO) 53.1 % (40.0-70.0); PLATELET COUNT (AUTO) 220 K/uL (150-450); RED BLOOD CELL COUNT(AUTO) 4.51 MIL/uL (4.00-5.20); RED CELL DISTRIBUTION WIDTH 13.5 % (11.5-14.5)
[2019-10-31 19:16] LABS: POTASSIUM 2.8 mmol/L (3.5-5.1)
[2019-10-31] MEDS ORDERED: POTASSIUM CHLORIDE 20 MEQ ER TABLET PO PRN (20:15)
[2019-10-31] MEDS ORDERED: POTASSIUM CHL 10 MEQ/WATER 50 ML IV PRN (20:15)
[2019-10-31 21:56] LABS: AMPHET/METH SCREEN,URINE NEGATIVE (NEGATIVE); BARBITURATE SCREEN, URINE NEGATIVE (NEGATIVE); BENZODIAZEPINES SCREEN,URINE NEGATIVE (NEGATIVE); CANNABINOID SCREEN,URINE POSITIVE (NEGATIVE); COCAINE SCREEN,URINE NEGATIVE (NEGATIVE); METHADONE SCREEN, URINE NEGATIVE (NEGATIVE); OPIATE SCREEN,URINE NEGATIVE (NEGATIVE)
[2019-10-31] MEDS ORDERED: SERTRALINE HCL 50 MG TABLET PO ONE (22:00)
[2019-10-31 22:02] LABS: PHENCYCLIDINE SCREEN,URINE NEGATIVE (NEGATIVE)
[2019-10-31 22:16] LABS: PLATELET MORPHOLOGY COMMENT LARGE PLTS PRESENT
== END 2019-11-01 00:38 | disposition home or self-care (01) ==
LOC: EMS 17:18
DX: S80.811A Abrasion, right lower leg, initial encounter (principal); F25.9 Schizoaffective disorder, unspecified; G47.00 Insomnia, unspecified; E87.6 Hypokalemia; F41.9 Anxiety disorder, unspecified; F14.90 Cocaine use, unspecified, uncomplicated; F12.90 Cannabis use, unspecified, uncomplicated; F32.9 Major depressive disorder, single episode, unspecified; X58.XXXA Exposure to other specified factors, initial encounter; Y93.89 Activity, other specified; Y92.89 Other specified places as the place of occurrence of the external cause; Y99.8 Other external cause status
CPT/HCPCS: 36415; 80053; 80307; 84132; 85025; 93005; 96374; 99285; G0480; J3480

== ENCOUNTER 2019-11-07 10:17 | Inpatient (IN) | payer MEDICAID, OTHER ==
[~2019-11-07] VITALS: Ht 182.9 cm; Wt 77.7 kg
[2019-11-07 11:00] LABS: BASOPHILS % (AUTO) 1.2 % (0.0-2.0); EOSINOPHILS % (AUTO) 0.6 % (1.0-6.0); HEMOGLOBIN 13.6 g/dL (12.0-16.0); LYMPHOCYTES # (AUTO) 2.5 K/uL (1.0-4.8); LYMPHOCYTES % (AUTO) 32.3 % (22.0-44.0); MEAN CORPUSCULAR HGB CONC 34.1 G/dL (31.0-37.0); MEAN CORPUSCULAR VOLUME 94 fL (80-100); MONOCYTES # (AUTO) 0.8 K/uL (0.1-1.0); NEUTROPHILS # (AUTO) 4.3 K/uL (1.8-7.7); NEUTROPHILS % (AUTO) 55.9 % (40.0-70.0); PLATELET COUNT (AUTO) 193 K/uL (150-450); RED BLOOD CELL COUNT(AUTO) 4.27 MIL/uL (4.00-5.20); RED CELL DISTRIBUTION WIDTH 13.5 % (11.5-14.5)
[2019-11-07 11:37] LABS: ANION GAP 9 mmol/L (8-16); CALCIUM, TOTAL 9.2 mg/dL (8.8-10.5); CARBON DIOXIDE 29 mmol/L (22-29); CHLORIDE 101 mmol/L (98-107); CREATININE 1.14 mg/dL (0.60-1.30); GLOMERULAR FILTR. RATE CALC > 60 mL/min (>60); GLUCOSE,RANDOM 95 mg/dL (70-110); POTASSIUM 3.4 mmol/L (3.5-5.1); SODIUM SERUM 139 mmol/L (136-145); UREA NITROGEN, BLOOD 17 mg/dL (7-18)
[2019-11-07 11:47] LABS: ALANINE AMINOTRANSFERASE 70 U/L (12-78); ALBUMIN 4.1 g/dL (3.4-5.0); ALKALINE PHOSPHATASE 78 U/L (46-116); ASPARTATE AMINOTRANSFERASE 89 U/L (15-37); BILIRUBIN,TOTAL 0.7 mg/dL (0.1-1.0); TOTAL PROTEIN, SERUM 8.3 g/dL (6.4-8.2)
[2019-11-07] MEDS ORDERED: QUEtiapine FUMARATE 100 MG TABLET PO ONE (12:00)
[2019-11-07 12:10] LABS: AMPHET/METH SCREEN,URINE NEGATIVE (NEGATIVE); BARBITURATE SCREEN, URINE NEGATIVE (NEGATIVE); BENZODIAZEPINES SCREEN,URINE NEGATIVE (NEGATIVE); CANNABINOID SCREEN,URINE POSITIVE (NEGATIVE); COCAINE SCREEN,URINE NEGATIVE (NEGATIVE); METHADONE SCREEN, URINE NEGATIVE (NEGATIVE); OPIATE SCREEN,URINE NEGATIVE (NEGATIVE); PHENCYCLIDINE SCREEN,URINE NEGATIVE (NEGATIVE)
[2019-11-07] MEDS ORDERED: LORazepam 2 MG/ML VIAL IM ONE (13:00)
[2019-11-07] MEDS ORDERED: DiphenhydrAMINE HCL 50 MG/ML VIAL IM ONE (13:00)
[2019-11-07] MEDS ORDERED: HALOPERIDOL LACTATE 5 MG/ML VIAL IM ONE (13:00)
[2019-11-07 18:19] VITALS: BP 106/70
[2019-11-07] MEDS ORDERED: POTASSIUM CHLORIDE 20 MEQ ER TABLET PO ONE (19:00)
[2019-11-07] MEDS: ZOLPIDEM TARTRATE 10 MG TABLET PO PRN (22:27)
[2019-11-08 06:07] VITALS: BP 100/76
[2019-11-08 07:27] LABS: CHOL/HDL RATIO 2.1 (3.9-5.7); CHOLESTEROL 142 mg/dL (131-200); HDL CHOLESTEROL 68 mg/dL (40-60); LDL CHOL (CALC.) 67 mg/dL (0-130); TRIGLYCERIDES 34 mg/dL (15-150)
[2019-11-08] MEDS ORDERED: GuaiFENesin/D-METHORPHAN [SUGAR-FREE] 200-20MG/10 ML SYRUP UDCUP PO PRN (08:15)
[2019-11-08] MEDS ORDERED: CloNIDine HCL 0.1 MG TABLET PO PRN (08:15)
[2019-11-08] MEDS ORDERED: ALBUTEROL SULFATE HFA 90 MCG/PUFF 8 GM INHALER IH PRN (08:15)
[2019-11-08] MEDS ORDERED: ACETAMINOPHEN 325 MG TABLET PO PRN (08:15)
[2019-11-08] MEDS ORDERED: PETROLATUM,WHITE 28 GM JELLY TP PRN (08:15)
[2019-11-08] MEDS ORDERED: MAGNESIUM HYDROXIDE SUSPENSION 30 ML UDCUP PO PRN (08:15)
[2019-11-08] MEDS ORDERED: ONDANSETRON HCL 4 MG TABLET PO PRN (08:15)
[2019-11-08] MEDS ORDERED: LOPERAMIDE HCL 2 MG CAPSULE PO PRN (08:15)
[2019-11-08] MEDS ORDERED: DOCUSATE SODIUM 100 MG CAPSULE PO PRN (08:15)
[2019-11-08] MEDS ORDERED: MAG HYDROX/AL HYDROX/SIMETH ES 30 ML SUSPENSION UDCUP PO PRN (08:15)
[2019-11-08 08:19] VITALS: BP 121/74
[2019-11-08] MEDS: LORazepam 2 MG TABLET PO PRN ×2 (10:31→17:15)
[2019-11-08 16:52] VITALS: BP 126/62
[2019-11-08] MEDS: OLANZapine 5 MG TABLET PO SCH (17:15)
[2019-11-08] MEDS: HALOPERIDOL 5 MG TABLET PO PRN (17:16)
[2019-11-08] MEDS: ZOLPIDEM TARTRATE 10 MG TABLET PO PRN (20:21)
[2019-11-09 04:38] VITALS: BP 110/69
[2019-11-09] MEDS: LORazepam 2 MG TABLET PO PRN ×2 (04:53→12:04)
[2019-11-09] MEDS: OLANZapine 5 MG TABLET PO SCH ×2 (08:14→16:42)
[2019-11-09 08:27] VITALS: BP 104/54
[2019-11-09 12:00] VITALS: BP 116/84
[2019-11-09 16:20] VITALS: BP 105/65
[2019-11-09] MEDS: ZOLPIDEM TARTRATE 10 MG TABLET PO PRN (22:42)
[2019-11-09] MEDS: IBUPROFEN 400 MG TABLET PO PRN (23:55)
[2019-11-10 00:02] VITALS: BP 118/67
[2019-11-10] MEDS: LORazepam 2 MG TABLET PO PRN ×3 (03:06→23:52)
[2019-11-10] MEDS: OLANZapine 5 MG TABLET PO SCH ×2 (08:07→16:53)
[2019-11-10 08:37] VITALS: BP 114/69
[2019-11-10 16:55] VITALS: BP 119/81
[2019-11-10] MEDS: ZOLPIDEM TARTRATE 10 MG TABLET PO PRN (20:40)
[2019-11-10] MEDS: NICOTINE 14 MG/24 HOUR PATCH TD PRN (21:37)
[2019-11-11 02:47] VITALS: BP 104/63
[2019-11-11] MEDS: LORazepam 2 MG TABLET PO PRN ×3 (08:07→17:07)
[2019-11-11] MEDS: OLANZapine 5 MG TABLET PO SCH ×2 (08:07→17:07)
[2019-11-11 08:23] VITALS: BP 113/72
[2019-11-11] MEDS: NICOTINE 14 MG/24 HOUR PATCH TD PRN (14:04)
[2019-11-11 16:24] VITALS: BP 106/60
[2019-11-12 01:38] VITALS: BP 102/69
[2019-11-12] MEDS: LORazepam 2 MG TABLET PO PRN ×3 (02:56→16:42)
[2019-11-12] MEDS: ZOLPIDEM TARTRATE 10 MG TABLET PO PRN ×2 (02:56→21:45)
[2019-11-12 08:17] VITALS: BP 123/71
[2019-11-12] MEDS: OLANZapine 5 MG TABLET PO SCH ×2 (08:26→16:42)
[2019-11-12 16:19] VITALS: BP 100/64
[2019-11-13] VITALS: BP 110/79
[2019-11-13] MEDS: LORazepam 2 MG TABLET PO PRN ×2 (01:28→11:57)
[2019-11-13] MEDS: OLANZapine 5 MG TABLET PO SCH ×2 (08:15→16:28)
[2019-11-13 08:38] VITALS: BP 107/67
[2019-11-13] MEDS: NICOTINE 14 MG/24 HOUR PATCH TD PRN (14:48)
[2019-11-13] MEDS: HALOPERIDOL 5 MG TABLET PO PRN (16:28)
[2019-11-13] MEDS ORDERED: ARIPiprazole ER SUSPENSION 400 MG PRE-FILLED DUAL CHAMBER SYRINGE IM SCH (17:00)
[2019-11-13 17:03] VITALS: BP 109/73
[2019-11-13] MEDS: ZOLPIDEM TARTRATE 10 MG TABLET PO PRN (20:10)
[2019-11-14] VITALS: BP 113/66
[2019-11-14] MEDS: LORazepam 2 MG TABLET PO PRN (08:16)
[2019-11-14] MEDS: OLANZapine 5 MG TABLET PO SCH ×2 (08:16→16:27)
[2019-11-14 08:39] VITALS: BP 143/72
[2019-11-14 16:29] VITALS: BP 106/63
[2019-11-15] MEDS: ZOLPIDEM TARTRATE 10 MG TABLET PO PRN ×2 (00:01→20:26)
[2019-11-15 00:02] VITALS: BP 120/81
[2019-11-15] MEDS: OLANZapine 5 MG TABLET PO SCH ×2 (08:16→16:43)
[2019-11-15 09:49] VITALS: BP 106/61
[2019-11-15] MEDS: IBUPROFEN 400 MG TABLET PO PRN (10:56)
[2019-11-15] MEDS: LORazepam 2 MG TABLET PO PRN ×2 (12:39→19:17)
[2019-11-15] MEDS: NICOTINE 14 MG/24 HOUR PATCH TD PRN (12:53)
[2019-11-15 21:01] VITALS: BP 120/71
[2019-11-16 01:23] VITALS: BP 110/62
[2019-11-16] MEDS: OLANZapine 5 MG TABLET PO SCH ×2 (09:05→16:29)
[2019-11-16] MEDS: LORazepam 2 MG TABLET PO PRN ×3 (09:05→21:46)
[2019-11-16] MEDS: IBUPROFEN 400 MG TABLET PO PRN ×2 (09:27→17:38)
[2019-11-16 10:38] VITALS: BP 122/70
[2019-11-16 16:30] VITALS: BP 121/68
[2019-11-16 17:20] VITALS: BP 130/73
[2019-11-16] MEDS: ZOLPIDEM TARTRATE 10 MG TABLET PO PRN (20:47)
[2019-11-17 01:03] VITALS: BP 112/71
[2019-11-17] MEDS: OLANZapine 5 MG TABLET PO SCH ×2 (08:23→16:35)
[2019-11-17 08:33] VITALS: BP 103/72
[2019-11-17] MEDS: LORazepam 2 MG TABLET PO PRN ×2 (09:09→16:35)
[2019-11-17 17:23] VITALS: BP 113/70
[2019-11-17] MEDS: IBUPROFEN 400 MG TABLET PO PRN (20:46)
[2019-11-17] MEDS: ZOLPIDEM TARTRATE 10 MG TABLET PO PRN (20:46)
[2019-11-18] MEDS: HALOPERIDOL 5 MG TABLET PO PRN (01:36)
[2019-11-18] MEDS: LORazepam 2 MG TABLET PO PRN ×2 (02:20→08:10)
[2019-11-18 02:31] VITALS: BP 107/68
[2019-11-18] MEDS: OLANZapine 5 MG TABLET PO SCH ×2 (08:09→16:09)
[2019-11-18 08:25] VITALS: BP 146/95
[2019-11-18] MEDS: NICOTINE 14 MG/24 HOUR PATCH TD PRN (13:54)
[2019-11-18 17:23] VITALS: BP 136/81
[2019-11-18] MEDS: ZOLPIDEM TARTRATE 10 MG TABLET PO PRN (20:42)
[2019-11-18] MEDS: IBUPROFEN 400 MG TABLET PO PRN (22:49)
[2019-11-19 04:12] VITALS: BP 124/80
[2019-11-19] MEDS: OLANZapine 5 MG TABLET PO SCH (08:10)
[2019-11-19] MEDS: LORazepam 2 MG TABLET PO PRN (08:10)
[2019-11-19 08:33] VITALS: BP 115/65
[2019-11-19] MEDS ORDERED: OLAN5TAB2 PO (12:58)
[2019-11-19] MEDS ORDERED: ARIP400S3 IM (13:01)
== END 2019-11-19 14:35 | disposition home or self-care (01) | DRG 885 ==
LOC: EMS 10:21 → B2S 16:22 → B3A 17:31
PROVIDERS: ADMIT Psychiatry & Neurology Child & Adolescent Psychiatry; ATTEND Psychiatry & Neurology Child & Adolescent Psychiatry
DX: F20.0 Paranoid schizophrenia (principal); E87.6 Hypokalemia; F32.9 Major depressive disorder, single episode, unspecified; J45.909 Unspecified asthma, uncomplicated; F14.90 Cocaine use, unspecified, uncomplicated; R74.0 Nonspecific elevation of levels of transaminase and lactic acid dehydrogenase [LDH]; Z59.0 Homelessness; Z91.14 Patient's other noncompliance with medication regimen
CPT/HCPCS: 84132; 99291; G0480; J0401; J1200; J1630; J2060

== ENCOUNTER 2019-11-30 10:55 | Emergency (ER) | payer MEDICAID, OTHER ==
[~2019-11-30] VITALS: Ht 167.6 cm; Wt 68.2 kg
[~2019-11-30 10:55] MED LIST changes: +ARIP400S3 IM; +OLAN5TAB2 PO; -SERT50TA12 PO
[2019-11-30 11:23] VITALS: BP 132/77
[2019-11-30 11:33] LABS: BASOPHILS % (AUTO) 0.7 % (0.0-2.0); EOSINOPHILS % (AUTO) 1.2 % (1.0-6.0); HEMATOCRIT 35.9 % (36-46); LYMPHOCYTES # (AUTO) 1.8 K/uL (1.0-4.8); LYMPHOCYTES % (AUTO) 27.3 % (22.0-44.0); MEAN CORPUSCULAR HEMOGLOBIN 31.8 pg (26.0-34.0); MEAN CORPUSCULAR HGB CONC 33.5 G/dL (31.0-37.0); MEAN CORPUSCULAR VOLUME 95 fL (80-100); MONOCYTES # (AUTO) 0.6 K/uL (0.1-1.0); MONOCYTES % (AUTO) 8.4 % (2.0-9.0); NEUTROPHILS # (AUTO) 4.1 K/uL (1.8-7.7); NEUTROPHILS % (AUTO) 62.4 % (40.0-70.0); PLATELET COUNT (AUTO) 269 K/uL (150-450); RED BLOOD CELL COUNT(AUTO) 3.78 MIL/uL (4.00-5.20); RED CELL DISTRIBUTION WIDTH 14.6 % (11.5-14.5)
[2019-11-30 11:45] LABS: ANION GAP 6 mmol/L (8-16); CALCIUM, TOTAL 8.9 mg/dL (8.8-10.5); CARBON DIOXIDE 29 mmol/L (22-29); CHLORIDE 104 mmol/L (98-107); CREATININE 0.83 mg/dL (0.60-1.30); GLOMERULAR FILTR. RATE CALC > 60 mL/min (>60); GLUCOSE,RANDOM 95 mg/dL (70-110); POTASSIUM 3.9 mmol/L (3.5-5.1); SODIUM SERUM 139 mmol/L (136-145); UREA NITROGEN, BLOOD 9 mg/dL (7-18)
[2019-11-30 11:58] LABS: ALANINE AMINOTRANSFERASE 60 U/L (12-78); ALBUMIN 3.4 g/dL (3.4-5.0); ALKALINE PHOSPHATASE 67 U/L (46-116); ASPARTATE AMINOTRANSFERASE 34 U/L (15-37); BILIRUBIN,TOTAL 0.5 mg/dL (0.1-1.0); HCG,QUANTITATIVE < 1 mIU/mL (0-6); TOTAL PROTEIN, SERUM 7.5 g/dL (6.4-8.2)
[2019-11-30 12:00] LABS: AMPHET/METH SCREEN,URINE NEGATIVE (NEGATIVE); BARBITURATE SCREEN, URINE NEGATIVE (NEGATIVE); BENZODIAZEPINES SCREEN,URINE NEGATIVE (NEGATIVE); CANNABINOID SCREEN,URINE POSITIVE (NEGATIVE); COCAINE SCREEN,URINE NEGATIVE (NEGATIVE); METHADONE SCREEN, URINE NEGATIVE (NEGATIVE); OPIATE SCREEN,URINE NEGATIVE (NEGATIVE)
[2019-11-30 12:01] LABS: PHENCYCLIDINE SCREEN,URINE NEGATIVE (NEGATIVE)
[2019-11-30] MEDS ORDERED: LORazepam 1 MG TABLET PO ONE (12:30)
== END 2019-11-30 12:52 | disposition home or self-care (01) ==
LOC: EMS 10:58
DX: F25.9 Schizoaffective disorder, unspecified (principal); F41.9 Anxiety disorder, unspecified; F32.9 Major depressive disorder, single episode, unspecified; F17.210 Nicotine dependence, cigarettes, uncomplicated; F14.90 Cocaine use, unspecified, uncomplicated; F12.90 Cannabis use, unspecified, uncomplicated
CPT/HCPCS: 36415; 80053; 80307; 84702; 85025; 99285; 99406; G0480

== ENCOUNTER 2020-07-23 04:56 | Inpatient (IN) | payer MEDICAID, OTHER ==
[~2020-07-23] VITALS: Ht 182.9 cm; Wt 70.5 kg
[2020-07-23] MEDS ORDERED: DiphenhydrAMINE HCL 50 MG/ML VIAL IM ONE (05:15)
[2020-07-23] MEDS ORDERED: LORazepam 2 MG/ML VIAL IM ONE (05:15)
[2020-07-23] MEDS ORDERED: HALOPERIDOL LACTATE 5 MG/ML VIAL IM ONE (05:15)
[2020-07-23] MEDS ORDERED: QUET100T PO (05:54)
[2020-07-23 06:04] LABS: ANION GAP 11 mmol/L (8-16); CALCIUM, TOTAL 8.7 mg/dL (8.8-10.5); CARBON DIOXIDE 23 mmol/L (22-29); CHLORIDE 105 mmol/L (98-107); CREATININE 0.99 mg/dL (0.60-1.30); GLOMERULAR FILTR. RATE CALC > 60 mL/min (>60); GLUCOSE,RANDOM 124 mg/dL (70-110); POTASSIUM 3.2 mmol/L (3.5-5.1); SODIUM SERUM 139 mmol/L (136-145); UREA NITROGEN, BLOOD 14 mg/dL (7-18)
[2020-07-23 06:05] LABS: BASOPHILS % (AUTO) 0.6 % (0.0-2.0); EOSINOPHILS % (AUTO) 0.1 % (1.0-6.0); HEMATOCRIT 35.4 % (36-46); HEMOGLOBIN 11.8 g/dL (12.0-16.0); LYMPHOCYTES # (AUTO) 1.2 K/uL (1.0-4.8); LYMPHOCYTES % (AUTO) 12.5 % (22.0-44.0); MEAN CORPUSCULAR HEMOGLOBIN 31.3 pg (26.0-34.0); MEAN CORPUSCULAR HGB CONC 33.3 G/dL (31.0-37.0); MEAN CORPUSCULAR VOLUME 94 fL (80-100); MONOCYTES # (AUTO) 0.5 K/uL (0.1-1.0); MONOCYTES % (AUTO) 5.5 % (2.0-9.0); NEUTROPHILS # (AUTO) 7.5 K/uL (1.8-7.7); NEUTROPHILS % (AUTO) 81.3 % (40.0-70.0); PLATELET COUNT (AUTO) 224 K/uL (150-450); RED BLOOD CELL COUNT(AUTO) 3.76 MIL/uL (4.00-5.20); RED CELL DISTRIBUTION WIDTH 13.6 % (11.5-14.5)
[2020-07-23 06:15] LABS: ALANINE AMINOTRANSFERASE 33 U/L (12-78); ALBUMIN 3.5 g/dL (3.4-5.0); ALKALINE PHOSPHATASE 61 U/L (46-116); ASPARTATE AMINOTRANSFERASE 30 U/L (15-37); BILIRUBIN,TOTAL 0.3 mg/dL (0.1-1.0); TOTAL PROTEIN, SERUM 7.5 g/dL (6.4-8.2)
[2020-07-23 06:30] LABS: COVID AG,FIA SOURCE NASOPHARYNGEAL
[2020-07-23 06:48] LABS: HCG,QUANTITATIVE < 1 mIU/mL (0-6)
[2020-07-23] MEDS ORDERED: POTASSIUM CHLORIDE 20 MEQ ER TABLET PO ONE (07:45)
[2020-07-23] MEDS ORDERED: HALOPERIDOL 5 MG TABLET PO PRN (10:15)
[2020-07-23 16:19] VITALS: BP 109/63
[2020-07-23] MEDS: OLANZapine 5 MG TABLET PO SCH (16:36)
[2020-07-24 01:14] VITALS: BP 112/74
[2020-07-24 08:10] VITALS: BP 121/73
[2020-07-24] MEDS: QUEtiapine FUMARATE 100 MG TABLET PO SCH (08:25)
[2020-07-24] MEDS: NICOTINE 21 MG/24 HOUR PATCH TD SCH (08:25)
[2020-07-24] MEDS: OLANZapine 5 MG TABLET PO SCH ×2 (08:25→16:11)
[2020-07-24] MEDS ORDERED: PETROLATUM,WHITE 28 GM JELLY TP PRN (08:45)
[2020-07-24] MEDS ORDERED: DOCUSATE SODIUM 100 MG CAPSULE PO PRN (08:45)
[2020-07-24] MEDS ORDERED: MAGNESIUM HYDROXIDE SUSPENSION 30 ML UDCUP PO PRN (08:45)
[2020-07-24] MEDS ORDERED: ALBUTEROL SULFATE HFA 90 MCG/PUFF 8 GM INHALER IH PRN (08:45)
[2020-07-24] MEDS ORDERED: MAG HYDROX/AL HYDROX/SIMETH ES 30 ML SUSPENSION UDCUP PO PRN (08:45)
[2020-07-24] MEDS ORDERED: ACETAMINOPHEN 325 MG TABLET PO PRN (08:45)
[2020-07-24] MEDS ORDERED: POTASSIUM CHLORIDE 20 MEQ ER TABLET PO ONE (08:45)
[2020-07-24] MEDS ORDERED: LOPERAMIDE HCL 2 MG CAPSULE PO PRN (08:45)
[2020-07-24] MEDS ORDERED: GuaiFENesin/D-METHORPHAN [SUGAR-FREE] 200-20MG/10 ML SYRUP UDCUP PO PRN (08:45)
[2020-07-24] MEDS ORDERED: ONDANSETRON HCL 4 MG TABLET PO PRN (08:45)
[2020-07-24] MEDS ORDERED: CloNIDine HCL 0.1 MG TABLET PO PRN (08:45)
[2020-07-24] MEDS ORDERED: IBUPROFEN 400 MG TABLET PO PRN (08:45)
[2020-07-24] MEDS ORDERED: NICOTINE 14 MG/24 HOUR PATCH TD PRN (08:45)
[2020-07-24 16:33] VITALS: BP 110/73
[2020-07-24] MEDS: LORazepam 2 MG TABLET PO PRN (19:55)
[2020-07-24] MEDS: ZOLPIDEM TARTRATE 10 MG TABLET PO PRN (20:37)
[2020-07-25 01:02] VITALS: BP 116/72
[2020-07-25 08:18] VITALS: BP 124/79
[2020-07-25] MEDS: QUEtiapine FUMARATE 100 MG TABLET PO SCH (09:17)
[2020-07-25] MEDS: OLANZapine 5 MG TABLET PO SCH ×2 (09:17→16:15)
[2020-07-25] MEDS: NICOTINE 21 MG/24 HOUR PATCH TD SCH (09:17)
[2020-07-25] MEDS: LORazepam 2 MG TABLET PO PRN (09:25)
[2020-07-25 16:15] VITALS: BP 107/67
[2020-07-25] MEDS: ZOLPIDEM TARTRATE 10 MG TABLET PO PRN (20:07)
[2020-07-26 04:25] VITALS: BP 118/64
[2020-07-26] MEDS: NICOTINE 21 MG/24 HOUR PATCH TD SCH (08:07)
[2020-07-26] MEDS: QUEtiapine FUMARATE 100 MG TABLET PO SCH (08:07)
[2020-07-26] MEDS: OLANZapine 5 MG TABLET PO SCH (08:07)
[2020-07-26 08:20] VITALS: BP 112/66
== END 2020-07-26 14:40 | disposition home or self-care (01) | DRG 750 ==
LOC: EMS 04:57 → B3A 11:28
PROVIDERS: ADMIT Psychiatry & Neurology Psychiatry; ATTEND Psychiatry & Neurology Psychiatry
DX: F25.0 Schizoaffective disorder, bipolar type (principal); Z20.822 Contact with and (suspected) exposure to COVID-19; E87.6 Hypokalemia; F15.90 Other stimulant use, unspecified, uncomplicated; R45.850 Homicidal ideations; F17.210 Nicotine dependence, cigarettes, uncomplicated; F32.9 Major depressive disorder, single episode, unspecified; D64.9 Anemia, unspecified; F99 Mental disorder, not otherwise specified; R73.9 Hyperglycemia, unspecified; Z91.14 Patient's other noncompliance with medication regimen; Z79.899 Other long term (current) drug therapy
CPT/HCPCS: 84132; 87426; 99285; G0480; J1200; J1630; J2060